=== PATIENT | female | born 1960 | race Native Hawaiian/Other Pacific Islander ===

== ENCOUNTER 2020-09-15 10:14 | Emergency (ER) | payer OTHER ==
[~2020-09-15] VITALS: Ht 165.1 cm; Wt 83.5 kg
[2020-09-15 10:18] VITALS: TEMP 97.8
[2020-09-15 10:54] LABS: POTASSIUM 4.1 mmol/L (3.6-5.2); SODIUM 141 mmol/L (136-145)
[2020-09-15 10:55] LABS: PLATELET COUNT 217 K/uL (152-353)
[2020-09-15 11:00] VITALS: BP 120/67
[2020-09-15 11:17] LABS: PARTIAL THROMBOPLASTIN TIME 29.8 SECONDS (24.5-33.6)
== END 2020-09-15 11:28 | disposition home or self-care (01) ==
LOC: ED 10:14
PROVIDERS: Emergency Medicine
DX: R00.2 Palpitations (principal); R42 Dizziness and giddiness; R06.02 Shortness of breath
CPT/HCPCS: 36415; 80053; 83880; 84484; 85027; 85379; 85610; 85730; 93005; 99284

== ENCOUNTER 2020-09-15 12:30 | Outpatient (CLI) | payer OTHER | END 2020-09-15 21:48 | disposition home or self-care (01) | LOC: RESP 12:30 | PROVIDERS: ATTEND Nurse Practitioner Family | DX: R55 Syncope and collapse (principal) ==